=== PATIENT | female | born 1935 | race Caucasian/White ===

== ENCOUNTER → 2017-06-17 | Outpatient (CLI) | payer OTHER ==
[~2017-06-17] MED LIST: B12,B-12,B 12500 MC1 PO; CARAFATE1 G1 PO; CLARITIN10 MG PO; FLAGYL500 MG PO; FUROSEMIDE20 M1 PO; GLUCOPHAGE1000 MG PO; LASIX20 MG PO; LEVAQUIN750 M1 PO; LISINOPRIL5 MG PO; METFORMIN500 MG PO; METOPROLOL SUCC25 M2 PO; METOPROLOL TART50 M1 PO; PREDNISONE10 MG PO; SIMVASTATIN40 MG PO; TOPROL XL25 MG PO; TRAD5TAB1 PO; TRADJENTA5 M1 PO; TYLENOL PM EX-1 EACH PO; TYLENOL325 M2 PO; VITAMIN B1250 MCG PO; VITAMIN D50000 I3 PO; XARE20MG PO; XARELTO STARTER20 MG PO
== END | disposition home or self-care (01) ==
LOC: US 10:45
DX: M71.22 Synovial cyst of popliteal space [Baker], left knee (principal)